=== PATIENT | male | born 1980 | race Two or more races ===

== ENCOUNTER 2018-11-28 10:21 | Emergency (ER) | payer SELFPAY ==
[2018-11-28 10:28] VITALS: BMI 29.0
[2018-11-28] MEDS ORDERED: KETOROLAC TROMETHAMINE 30 MG/1 ML VIAL IVPUSH ONE (10:56)
[2018-11-28] MEDS ORDERED: SODIUM CHLORIDE 1,000 ML IV ONE (10:56)
[2018-11-28] MEDS ORDERED: ONDANSETRON 4 MG/2 ML VIAL IVPB ONE (10:56)
[2018-11-28] MEDS ORDERED: KETOROLAC TROMETHAMINE 30 MG/1 ML VIAL ONE (11:06)
[2018-11-28] MEDS ORDERED: ONDANSETRON 4 MG/2 ML VIAL ONE (11:07)
--- NOTE | 2018-11-28 11:38 | PDOC ---
Documentation entered by Ashlee Magana SCRIBE, acting as scribe for Enmanuel Chaudhary MD. Enmanuel Chaudhary MD: This documentation has been prepared by the [place] brown Brenda, SCRIBE, under my direction and personally reviewed by me in its entirety. I confirm that the documentation accurately reflects all work, treatment, procedures, and medical decision making performed by me. History of Present Illness - General Chief Complaint: Pain, Acute Stated Complaint: ABD PAIN / LOWER BACK PAIN Time Seen by Provider: 11/28/18 10:36 History Source: Patient Exam Limitations: No Limitations - History of Present Illness Initial Comments: 11/28/18 11:15 The patient is a 38 year old male, with no significant PMH who presents to the emergency department with 2 hours of left abdominal pain and left flank pain. As per patient, pain started 2 hours ago and is accompanied by nausea and a subjective fever. He notes feeling fine last night, having regular POintake. The patient denies chest pain, shortness of breath, headache and dizziness. Denies vomiting, diarrhea and constipation. Denies any urinary symptoms. Allergies: NKA PCP: Does not have one Past History - Past Medical History Allergies/Adverse Reactions: Allergies Allergy/AdvReac Type Severity Reaction Status Date / Time No Known Allergies Allergy Verified 11/28/18 10:29 Home Medications: Ambulatory Orders Ibuprofen 400 mg PO QID #30 tablet 11/28/18 Oxycodone HCl/Acetaminophen [Percocet 5-325 mg Tablet -] 1 combo PO Q6H PRN #14 tablet MDD 4 11/28/18 Tamsulosin HCl [Flomax] 0.4 mg PO DAILY #7 capsule 11/28/18 COPD: No - Immunization History Immunization Up to Date: No - Suicide/Smoking/Psychosocial Hx Smoking History: Never smoked Have you smoked in the past 12 months: No Information on smoking cessation initiated: No Hx Alcohol Use: No Drug/Substance Use Hx: No Review of Systems - Review of Systems Able to Perform ROS?: Yes Comments:: 11/28/18 11:15 Constitutional - +Subjective fever. Pt denies weakness, HEENT: denies vision changes, sore throat Respiratory: Denies cough, sob, hemoptysis Cardiac: denies chest pain, palpitations, light headedness, leg swelling Abd/GI: +Abdominal pain. +Left Flank pain. +Nausea. Denies vomiting, blood per rectum, melena, diarrhea : denies dysuria, frequency, discharge Musculskelatal - denies back pain, joint swelling skin - denies bruising, erythema, rash neurological: denies headache, numbness, focal weakness, tingling, ataxia, weakness hematologic: denies anemia, easy bruising, easy bleeding *Physical Exam - Vital Signs Last Vital Signs Temp Pulse Resp BP Pulse Ox 97.8 F 72 18 129/84 100 11/28/18 10:24 11/28/18 10:24 11/28/18 10:24 11/28/18 10:24 11/28/18 10:24 - Physical Exam Comments: 11/28/18 10:57 GENERAL: The patient is awake, alert, and fully oriented, Nontoxic - in no acute distress. HEAD: Normocephalic, atraumatic. EYES: extraocular movements intact, sclera anicteric, conjunctiva clear. ENT: Normal voice, Moist mucous membranes. NECK: Normal range of motion, supple LUNGS: Breath sounds equal, clear to auscultation bilaterally. No wheezes, no rhonchi, no rales. HEART: Regular rate and rhythm, normal S1 and S2 without murmur, rub or gallop. ABDOMEN: soft, nontender, no rebound/guarding, mild L cva tenderness EXTREMITIES: Normal range of motion, no edema. NEUROLOGICAL: No facial assymetry, Normal speech, moving all 4 extremities spontanously and symmetrically PSYCH: Normal mood, normal affect. SKIN: Warm, Dry, normal turgor, ED Treatment Course - LABORATORY CBC & Chemistry Diagram: 11/28/18 11:20 11/28/18 11:20 Medical Decision Making - Medical Decision Making 11/28/18 10:58 38y M presents with left sided abd pain radiating to the l flank suspect posible kidney stones 11/28/18 14:[address] reviwed noted for 3mm L uvj stone pt feeling improved will dc with meds and uro fu return precautions were discussed I discussed the physical exam findings, ancillary test results and final diagnoses with the patient. I answered all of the patient's questions. The patient was satisfied with the care received and felt comfortable with the discharge plan and treatment plan. The patient will call their primary care physician within 24 hours to arrange follow-up and will return to the Emergency Department with any new, persistent or worsening symptoms. *DC/Admit/Observation/Transfer Diagnosis at time of Disposition: Kidney stone on left side - Discharge Dispostion Disposition: HOME Condition at time of disposition: Improved Decision to Admit order: No - Prescriptions Prescriptions: Ibuprofen 400 mg PO QID #30 tablet Oxycodone HCl/Acetaminophen [Percocet 5-325 mg Tablet -] 1 combo PO Q6H PRN #14 tablet MDD 4 PRN Reason: Pain Tamsulosin HCl [Flomax] 0.4 mg PO DAILY #7 capsule - Referrals Referrals: Reed Trujillo MD [Staff Physician] - [facility] – [place] [facility] [Provider Group] - Patient Instructions Printed Discharge Instructions: DI for Kidney Stones Additional Instructions: Regrese al departamento de emergencias inmediatamente con CUALQUIER sntoma nuevo, persistente o que empeore, karthik empeoramiento del dolor, incapacidad para tolerar la ingesta oral, fiebre / escalofros o cualquier otra inquietud. [place] el ibuprofeno cada 6 horas loyd los prximos 2 agosto. [place] Percocet si tiene dolor que no se trata con el motrin / ibuprofeno. Tenga en cuenta que puede causarle sueo, as que no maneje ni nilda nada que pueda ponerle a usted oa otras personas en peligro. [place] flomax diariamente. Mantente shemar hidratado. DEBE llamar y hacer un seguimiento con johnson mdico y urologa dentro de los 3 agosto para eusebio evaluacin adicional de garima sntomas. Johnson visita al departamento de emergencias no est completa sin un seguimiento con johnson mdico para johnson reevaluacin. Los resultados fueron discutidos con usted. Asegrese de que johnson mdico revise los resultados de johnson evaluacin de emergencia. Return to the emergency department immediately with ANY new, persistent or worsening symptoms including worsening pain, inability to tolerate oral intake, fever/chills, or any other concerns. Take the ibuprofen every 6 hours for the next 2 days. Take percocet if you have pain that is not treated with the motrin/ibuprofen. Beware that it may make you sleepy, so do not drive or do anything that would put you or others in danger. Take flomax daily. Stay well hydrated. You MUST call and follow up with your doctor and urology within 3 days for further evaluation of your symptoms. Your emergency department visit is not complete without a followup with your doctor for reevaluation. Results were discussed with you. Please make sure your doctor reviews the results of your emergency evaluation. Print Language: MOHAWK - Post Discharge Activity Forms/Work/School Notes: Back to Work
[2018-11-28 12:02] LABS: BASO % 0.4 % (0-2.0); EOS % 0.3 % (0-4.5); HEMATOCRIT 45.6 % (35.4-49); HEMOGLOBIN 15.9 GM/dL (11.7-16.9); LYMPH % 13.3 % (8-40); MCH 30.3 pg (25.7-33.7); MCHC 34.8 g/dl (32.0-35.9); MEAN CELL VOLUME 87.2 fl (80-96); MEAN PLT VOLUME 10.6 fl (7.5-11.1); MONO % 6.6 % (3.8-10.2); NEUT % 79.4 % (42.8-82.8); PLATELET COUNT 157 K/MM3 (134-434); RBC 5.23 M/mm3 (4.00-5.60); RDW 13.5 % (11.9-15.9); WHITE BLOOD COUNT 14.7 K/mm3 (4.0-10.0)
[2018-11-28 12:05] LABS: EPI CELLS 5.3 /HPF (0-5/HPF); HYALINE CASTS 32 /lpf (0-8); PH,URINE 5.5 (5.0-8.0); URINE APPEARANCE CLOUDY; URINE BACTERIA 2.4 /hpf (NEGATIVE); URINE BILIRUBIN NEGATIVE (NEGATIVE); URINE COLOR YELLOW; URINE GLUCOSE (UA) NEGATIVE (NEGATIVE); URINE KETONE TRACE (NEGATIVE); URINE LEUK ESTERASE NEGATIVE (NEGATIVE); URINE NITRITE NEGATIVE (NEGATIVE); URINE PROTEIN 1+ (NEGATIVE); URINE RBC 17 /hpf (0-4); URINE WBC 3 /hpf (0-5)
[2018-11-28 13:01] LABS: ALBUMIN 4.5 g/dl (3.4-5.0); BILIRUBIN,TOTAL 0.9 mg/dL (0.2-1); BLOOD UREA NITROGEN 14.4 mg/dL (7-18); CALCIUM 9.5 mg/dL (8.5-10.1); CREATININE 1.2 mg/dL (0.55-1.3); POTASSIUM 3.6 mmol/L (3.5-5.1); TOT PROT 7.8 g/dl (6.4-8.2)
[2018-11-28 14:48] VITALS: BP 125/73; PULSE 66; TEMP 98.8
== END 2018-11-28 15:37 | disposition home or self-care (01) ==
LOC: JER 10:21
PROC: 3E033GC Introduction of Other Therapeutic Substance into Peripheral Vein, Percutaneous Approach (ICD-10-PCS; principal; 2018-11-28)
PROC: 3E0333Z Introduction of Anti-inflammatory into Peripheral Vein, Percutaneous Approach (ICD-10-PCS; 2018-11-28)
DX: N20.0 Calculus of kidney (principal)
CPT/HCPCS: 36415; 74176-TC; 80053; 81003; 83690; 85025; 87086; 99283-25; J7030